=== PATIENT | male | born 1980 | race Caucasian/White ===

== ENCOUNTER 2019-07-20 09:57 | Emergency (ER) | payer BC ==
[~2019-07-20] VITALS: Ht 180.3 cm; Wt 113.4 kg
[2019-07-20 10:00] VITALS: BP_SYST 128
--- NOTE | 2019-07-20 10:00 | NUR ---
BROUGHT BACK TO BED #4 AND TRIAGED. REPORT GIVEN TO OVI
--- NOTE | 2019-07-20 10:02 | NUR ---
Patient arrived in the ED c/o bruised tongue post alcohol-related seizure last week. Denied any chest pain or shortness of breath. Denied any fevers, chills, nausea or vomiting. Patient is alert and oriented x4, respirations even and unlabored, speaking in full sentences, and ambulating with a steady gait. VSS, pain level 3/10 - Taking Excedrin for it. Informed of the approximate wait time. Instructed to notify ED staff for any changes in condition or worsening of symptoms. Patient verbalized understanding.
--- NOTE | 2019-07-20 10:06 | NUR ---
ER Dr. Hull at bedside examining patient.
[2019-07-20 10:27] VITALS: BP_SYST 128
--- NOTE | 2019-07-20 10:27 | NUR ---
Patient given written and verbal discharge instructions and verbalizes understanding. ER MD discussed with patient the results and treatment provided. Patient in stable condition. ID arm band removed. Rx of Penicillin given. Patient educated on pain management and to follow up with PMD. Pain Scale 0/10. Opportunity for questions provided and answered. Medication side effect fact sheet provided.
== END 2019-07-20 10:27 | disposition home or self-care (01) ==
LOC: SED 09:57
DX: S01.512A Laceration without foreign body of oral cavity, initial encounter (principal); X58.XXXA Exposure to other specified factors, initial encounter; Y93.89 Activity, other specified; Y92.89 Other specified places as the place of occurrence of the external cause; Y99.8 Other external cause status
CPT/HCPCS: 99283